=== PATIENT | female | born 1950 | race Two or more races ===

== ENCOUNTER → 2020-06-01 08:00 | Outpatient (CLI) | payer OTHER ==
[~2020-06-01 08:00] MED LIST: ACID REDUCER20 M1 PO; AVAPRO75 MG PO; COZAAR100 MG PO; LIPITOR PO; NORVASC5 MG PO
== END | disposition home or self-care (01) ==
LOC: LAB 08:00 → ADM 08:00 → SURH 06-04 07:00 → EDSTATUS 06-04 09:15 → SURH 06-04 19:00
PROVIDERS: ATTEND Surgery
DX: K43.2 Incisional hernia without obstruction or gangrene (principal); R07.89 Other chest pain; Z01.810 Encounter for preprocedural cardiovascular examination; Z20.828 Contact with and (suspected) exposure to other viral communicable diseases

== ENCOUNTER → 2020-10-01 08:00 | Outpatient (CLI) | payer OTHER ==
[~2020-10-01] VITALS: Ht 157.5 cm; Wt 77.1 kg
[~2020-10-01 08:00] MED LIST changes: +FENOFIBRATE160 MG PO
== END | disposition home or self-care (01) ==
LOC: LAB 08:00 → SURH 10-08 07:00 → EDSTATUS 10-08 07:00
PROVIDERS: ATTEND Surgery
DX: K43.0 Incisional hernia with obstruction, without gangrene (principal); K42.0 Umbilical hernia with obstruction, without gangrene; Z20.818 Contact with and (suspected) exposure to other bacterial communicable diseases; I10 Essential (primary) hypertension

== ENCOUNTER 2020-12-21 09:15 | Inpatient (IN) | payer OTHER ==
[~2020-12-21] VITALS: Ht 157.5 cm; Wt 76.2 kg
[2020-12-21] MEDS ORDERED: LOSARTAN-HCTZ1 EAC1 PO (12:02)
[2020-12-21] MEDS ORDERED: TOPROL XL25 M1 PO (12:03)
[2020-12-21] MEDS ORDERED: AMLODIP PO (12:03)
[2020-12-21] MEDS ORDERED: HYDROCHLOROTH12.5 MG PO (12:03)
[2020-12-24] MEDS ORDERED: AMLODIPINE BESYL5 MG (10:10)
[2020-12-24] MEDS ORDERED: SPIRONOLACTONE25 MG (10:10)
[2020-12-24] MEDS ORDERED: LOSARTAN POTAS100 MG (10:10)
[2020-12-24] MEDS ORDERED: FENOFIBRATE160 MG (10:10)
[2020-12-24] MEDS ORDERED: ATORVASTATIN CA10 MG (10:10)
[2020-12-24] MEDS ORDERED: OMEPRAZOLE20 M1 (10:10)
[2020-12-28] MEDS ORDERED: MIRALAX17 GM PO (05:19)
[2020-12-28] MEDS ORDERED: TYLENOL ARTHRI650 MG PO (05:19)
[2020-12-28] MEDS ORDERED: ULTRAM50 MG PO (05:19)
[2020-12-28] MEDS ORDERED: PEPCID20 MG PO (19:10)
== END 2020-12-29 14:19 | disposition home or self-care (01) | DRG 337 ==
LOC: SURH 12-24 07:00 → O/R 12-24 07:09 → SURH 12-24 09:15
PROVIDERS: Obstetrics & Gynecology Gynecologic Oncology; ADMIT Surgery; ATTEND Surgery
PROC: 0UT90ZZ Resection of Uterus, Open Approach (ICD-10-PCS; 2020-12-24)
PROC: 0UT20ZZ Resection of Bilateral Ovaries, Open Approach (ICD-10-PCS; 2020-12-24)
PROC: 0UT70ZZ Resection of Bilateral Fallopian Tubes, Open Approach (ICD-10-PCS; 2020-12-24)
PROC: 0TN70ZZ Release Left Ureter, Open Approach (ICD-10-PCS; 2020-12-24)
PROC: 0TN60ZZ Release Right Ureter, Open Approach (ICD-10-PCS; 2020-12-24)
PROC: 0DNW0ZZ Release Peritoneum, Open Approach (ICD-10-PCS; principal; 2020-12-24 07:00)
PROC: 0WUF0JZ Supplement Abdominal Wall with Synthetic Substitute, Open Approach (ICD-10-PCS; 2020-12-24 07:00)
DX: K43.0 Incisional hernia with obstruction, without gangrene (principal); K42.0 Umbilical hernia with obstruction, without gangrene; N99.4 Postprocedural pelvic peritoneal adhesions; N73.6 Female pelvic peritoneal adhesions (postinfective); D25.1 Intramural leiomyoma of uterus; N72 Inflammatory disease of cervix uteri; N80.0 Endometriosis of uterus; N94.89 Other specified conditions associated with female genital organs and menstrual cycle; N83.291 Other ovarian cyst, right side; N83.8 Other noninflammatory disorders of ovary, fallopian tube and broad ligament; N83.202 Unspecified ovarian cyst, left side; R53.81 Other malaise; I10 Essential (primary) hypertension; E78.5 Hyperlipidemia, unspecified